=== PATIENT | female | born 1980 | race American Indian/Alaskan Native ===

== ENCOUNTER 2017-10-03 08:06 | Outpatient (CLI) | payer BC ==
--- NOTE | 2017-10-03 08:32 | XRay Report ---
RIGHT ANKLE RADIOGRAPHS INDICATION: Right ankle pain. COMPARISON: None similar at this institution. FINDINGS: AP, lateral and oblique right ankle radiographs demonstrate intact mortise, malleoli and talar dome contour. Mild dorsal navicular and plantar calcaneal spurs. Moderate dorsal calcaneal spurring also noted, including approximately 1.1 x 0.4 cm calcification about the Achilles tendon attachment. Normal soft tissues. CONCLUSION: No acute bony abnormality with degenerative spurring noted, as described. 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 Thank you for the opportunity to participate in this patient's care.
== END 2017-10-03 08:07 | disposition home or self-care (01) ==
LOC: SPVIMAG 08:06
PROVIDERS: ATTEND Orthopaedic Surgery
DX: M77.31 Calcaneal spur, right foot (principal); M25.871 Other specified joint disorders, right ankle and foot